=== PATIENT | female | born 1935 | race African-American/Black ===

== ENCOUNTER 2019-10-11 16:54 | Inpatient (IN) ==
--- NOTE | 2019-10-11 17:27 | PROVIDER DOCUMENTATION ---
HPI-General Adult - General Chief Complaint: Fall Stated Complaint: FALL-HEADACHE Time Seen by Provider: 10/11/19 17:06 Source: patient, other (friend) Allergies/Adverse Reactions: Patient Allergies Allergy/AdvReac Type Severity Reaction Status Date / Time hydrocodone AdvReac RASH Verified 09/06/19 11:44 Latex, Natural Rubber AdvReac HIVES Verified 09/06/19 11:44 Penicillins AdvReac HIVES Verified 09/06/19 11:44 Home Medications: Home Medication List Medication Instructions Recorded Confirmed Last Taken Type Duloxetine HCl 30 mg PO DAILY 08/04/18 09/06/19 Unknown History Furosemide 20 mg PO DAILY 08/04/18 09/06/19 Unknown History Gabapentin 2 tab PO BID 09/06/19 09/06/19 Unknown History Losartan Potassium 1 tab PO DAILY 09/06/19 09/06/19 Unknown History Meloxicam 15 mg PO DAILY 09/06/19 09/06/19 Unknown History Omeprazole 1 tab PO DAILY 09/06/19 09/06/19 Unknown History - History of Present Illness -Gen Adult Nature of Presenting Problems: 83 yof presents with c/o fall and laying on the bathroom floor x 1 hour. she reports she tripped, remembers fall. She reports she hit her head and left shoulder. She reports she recently has had constipation, hiccups, poor appetite, abdominal cramping, was recently treated for UTI and placed on magnesium for leg cramps. She is alert and oriented on exam. C/o headache, nausea, vomiting, L shoulder pain. Location of Pain/Injury: reports: head, upper extremity Pain Radiation: reports: no radiation Quality of Pain: reports: aching Severity: reports: moderate Onset/Duration: reports: 4-6 hours ago Timing: reports: still present Context/Activities at Onset: reports: other (fall) Modifying Factors: improves with: nothing Associated Symptoms: reports: constipation, nausea, vomiting Similar Symptoms Previously?: Yes Recently seen or treated by another doctor?: No Review of Systems - Adult - REVIEW OF SYSTEMS - ADULT Constitutional: reports: no symptoms reported. denies: see HPI, chills, fever, fatique, night sweats, weight gain, weight loss, other Eyes: reports: no symptoms reported. denies: see HPI, discharge, dry eyes, decreased vision, blurred vision, double vision, eye pain, redness, other Ears, Nose, Mouth & Throat: reports: no symptoms reported. denies: see HPI, ear discharge, ear pain, hearing loss, tinnitus, epistaxis, sinus problem, nose pain, loose teeth, mouth/dental pain, mouth swelling, hoarseness, throat pain, throat swelling, other Cardiovascular: reports: no symptoms reported. denies: see HPI, chest pain, edema, heart murmur, irregular heart rate, orthopnea, palpitations, poor circulation, PND, syncope, other Respiratory: reports: no symptoms reported. denies: see HPI, chronic cough, cough, dyspnea on exertion, excessive sputum production, hemoptysis, pleurisy, shortness of breath, wheezing, other Gastrointestinal: reports: abdominal pain (cramping), constipation, nausea, vomiting. denies: no symptoms reported, see HPI, hematemesis, diarrhea, difficulty swallowing, frequent heartburn, poor appetite, rectal bleeding, other Genitourinary: reports: see HPI, dysuria, frequency. denies: no symptoms reported, discharge, flank pain, frequent UTI's, hematuria, hesitency, incontinence, urinary retention, urgency, other Musculoskeletal: reports: see HPI, bone pain, joint pain, neck pain. denies: no symptoms reported, back pain, frequent leg cramps, joint swelling, muscle aches, muscle weakness, other Integumentary: reports: no symptoms reported. denies: see HPI, hives, hair loss, itching, mole changes, nail changes, rash, skin sores/ulcer, skin thickening, other Neurological: reports: headache/migraines. denies: no symptoms reported, see HPI, ataxia, dizziness/vertigo, loss of balance, numbness, paresthesia, seizure, slurred speech, syncope, tremors, other Psychiatric: reports: no symptoms reported. denies: see HPI, anxiety, anti- depressant use, alcohol/drug dependence, depression, emotional problems, insomnia, panic attacks, suicidal thoughts, other Endocrine: reports: no symptoms reported. denies: see HPI, change in skin pigment, excessive sweating, goiter, cold intolerance, heat intolerance, increased hunger, increased thirst, polyuria, other Hematologic/Lymphatic: reports: no symptoms reported. denies: see HPI, blood clots, easy bruising, low blood count, lymphedema, prolonged bleeding, swollen lymph nodes, transfusions, other Allergic/Immunologic: reports: no symptoms reported. denies: see HPI, allergic reactions, allergic rhinitis, asthma, eczema, food allergy, frequent infections, hay fever, hives, positive PPD, urticaria, other Past History - Adult - PAST MEDICAL HISTORY-ADULT Review of Records: reports: Nursing Assessment Review, Social history reviewed & non-contributory. Major Childhood Illnesses: reports: denies history Cardiovascular: reports: HTN Respiratory: reports: denies history Gastrointestinal: reports: denies history Obstetrical/Gynecological: reports: denies history Genitourinary: reports: denies history Musculoskeletal: reports: chronic pain (back) Neurological: reports: denies history Psychiatric: reports: denies history Endocrine/Immune: reports: denies history Other Conditions: reports: denies history - PRIOR SURGERIES/PROCEDURES Surgical/Procedure History: reports: reviewed, not pertinent, hysterectomy, back/neck (back) - IMMUNIZATION STATUS Childhood Immunizations: See Nurse Assessment Flu Vaccine: See Nurse Assessment - FAMILY HISTORY Family History: reviewed, not pertinent Physical Exam-General - PHYSICAL EXAM-ADULT Initial Vital Signs Reviewed: Yes - CONSTITUTIONAL General Appearance: alert, no apparent distress - EYES Eyes: PERRL/EOMI, pink conjunctivae - HEAD, EARS, NOSE, MOUTH & THROAT HENMT: normocephalic/atraumatic, moist mucous membranes, normal ENT inspection - NECK Neck: non-tender, full range of motion, supple - RESPIRATORY Respiratory: chest non-tender, lungs clear, normal breath sounds, no pleuratic chest pain, no respiratory distress, no accessory muscle use - CARDIOVASCULAR Cardiovascular: normal peripheral pulses, regular rate, rhythm, no edema, no gallop, no JVD, no murmur - GASTROINTESTINAL (ABDOMEN) Abdominal Exam: normal bowel sounds, soft, tenderness (generalized) - LYMPHATIC Lymphatic: no adenopathy - MUSCULOSKELETAL Back Exam: normal inspection, no CVA tenderness, no vertebral tenderness. negative: vertebral tenderness Extremity: normal range of motion, non-tender, normal inspection, no pedal edema Peripheral Pulses: radial (R): 2+, radial (L): 2+ - SKIN Integumentary: normal color, normal turgor, warm/dry - NEUROLOGIC Neurologic: grossly normal. negative: aphasia, facial droop, focal weakness - PSYCHIATRIC Psych/Mental Status: normal mood/affect, oriented x 3 Progress - PLAN OF CARE/RESULTS Progress/Plan/Lab Results: Vital Signs - 8 hr 10/11/19 17:06 Temperature 97.3 F L Pulse Rate 79 Respiratory Rate 18 Blood Pressure 145/89 O2 Sat by Pulse Oximetry 96 Orders Category Date Time Status CT HEAD/C-SPINE W/O CONTRAST [CT] Stat Exams 10/11/19 17:10 Ordered CBC WITH ELECTRONIC DIFF [HEME] Stat Lab 10/11/19 17:10 Uncollected CK PROFILE [SP CHEM] Stat Lab 10/11/19 17:21 Uncollected COMPREHENSIVE METABOLIC PANEL [CHEM] Stat Lab 10/11/19 17:10 Uncollected UA NIMS W/REFLEX CULT [URINALYSIS] Stat Lab 10/11/19 17:10 Uncollected Result Diagrams: 10/11/19 17:18 10/11/19 17:18 - CT/MRI 1 CT Study: Cervical Spine, Head Impression: See EMR Report (EXAM: CT HEAD/C-SPINE W/O CONTRAST INDICATION: Fall TECHNIQUE: This exam was performed using automated exposure control, adjustment of mA or kV according to patient size, and/or use of iterative reconstruction technique. 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 There is no definite acute infarct given the limited sensitivity of CT versus MRI. There is no discrete intracranial mass, mass effect, or intracranial hemorrhage. The surrounding soft tissues are essentially unremarkable. The calvaria is intact. C-spine: There is advanced multilevel facet arthropathy. There is fusion of the facets at C4-5. This causing minimal anterolisthesis of C4 on C5. There is milder degenerative disc disease with small marginal osteophytes at C5-6 and C6-7. There is disc space height loss at C6-7. The central canal appears to be largely patent. There is foraminal stenosis related to the facet arthropathy at multiple levels. Otherwise, there is no discrete fracture, subluxation, or intrinsic osseous lesion. The surrounding soft tissues are essentially unremarkable. IMPRESSION: 1.No evidence of acute intracranial pathology. 2.Multilevel degenerative arthropathy as described. No evidence of fracture or other definite acute C-spine injury. Electronically signed by Jesus Simpson 10/11/2019 6:26 PM 10/11/19 [id number] Interpreting Physician: Jesus Simpson MD Dictated Date/Time: 10/11/19 182) - CONSULTS/PCP/HOSPITALIST Notification #1 *Consult/PCP/Hospitalist*: Dr. Do Time Discussed: 18:57 Consult Disposition: Admit (Place patient on NS at 75, no abx after this initial dose.) Departure - Departure Date of Disposition Decision: 10/11/19 Time of Disposition Decision: 18:56 DIAGNOSIS: EMILIE (acute kidney injury), Dehydration, Fall, Degenerative disc disease, cervical, UTI (urinary tract infection) Disposition: ADMITTED INPATIENT 09 Certified Medical Emergency: Emergent Condition: Stable Referrals and Follow-Ups: Sky Flores MD [Primary Care Provider] - - Critical Care Note This patient required my direct & personal management of CC.: No Attestation - Physician/ LELAND Attestation Patient care was provided by Advanced Practice Provider:: Yes Advanced Practice Provider:: Barbara Zurita Advanced Practice Provider documentation review:: The Mid-level provider documentation, treatment plan and medical decision making was reviewed by the physician who agrees with all treatment and medical decision making by the MLP. The physician spent face to face time with patient:: No Advanced Practice Provider documentation review:: Supervising physician onsite and consulted in the evaluation and care of this patient. The physician did not have a face to face encounter with the patient.
[2019-10-11 17:47] LABS: BASO# 0.02 X1000 (0.0-0.2); BASO% 0.1 % (0.0-0.8); HEMATOCRIT 44.1 % (37.0-47.0); HEMOGLOBIN 14.1 g/dL (12.0-16.0); IMM GRAN# 0.04 X1000 (0.0-0.04); IMM GRAN% 0.3 % (0.0-0.5); LYMPH# 1.97 X1000 (1.2-3.4); LYMPH% 13.1 % (20.5-51.1); MCH 23.9 PG (27-31); MCV 74.9 FL (81-99); MONO# 1.08 X1000 (0.11-0.59); MONO% 7.2 % (1.7-9.3); MPV 12.3 FL (7.4-10.4); NEUT# 11.93 X1000 (1.4-6.5); NEUT% 79.3 % (42.2-75.2); PLT 252 X1000 (130-400); RBC 5.89 XMIL (4.2-5.4); RDW 16.4 % (11.5-14.5); WBC 15.04 X1000 (4.8-10.8)
[2019-10-11 18:06] LABS: ALBUMIN 4.6 g/dL (3.5-5.0); CALCIUM 10.6 mg/dL (8.8-10.2); CREATININE 1.5 mg/dL (0.5-0.9); MAGNESIUM 2.9 mg/dL (1.5-2.7); POTASSIUM 4.7 mmol/L (3.5-5.1); TOTAL BILIRUBIN 0.6 mg/dL (0.20-1.00); TOTAL PROTEIN 7.9 g/dL (6.3-8.3)
[2019-10-11] MEDS ORDERED: NS 500 ML IV ONE (18:09)
[2019-10-11 18:13] LABS: URINE SOURCE CLEAN CATCH
--- NOTE | 2019-10-11 18:28 | Diag Imaging Result Doc PS360 ---
EXAM: CT HEAD/C-SPINE W/O CONTRAST INDICATION: Fall TECHNIQUE: This exam was performed using automated exposure control, adjustment of mA or kV according to patient size, and/or use of iterative reconstruction technique. 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 There is no definite acute infarct given the limited sensitivity of CT versus MRI. There is no discrete intracranial mass, mass effect, or intracranial hemorrhage. The surrounding soft tissues are essentially unremarkable. The calvaria is intact. C-spine: There is advanced multilevel facet arthropathy. There is fusion of the facets at C4-5. This causing minimal anterolisthesis of C4 on C5. There is milder degenerative disc disease with small marginal osteophytes at C5-6 and C6-7. There is disc space height loss at C6-7. The central canal appears to be largely patent. There is foraminal stenosis related to the facet arthropathy at multiple levels. Otherwise, there is no discrete fracture, subluxation, or intrinsic osseous lesion. The surrounding soft tissues are essentially unremarkable. IMPRESSION: 1.No evidence of acute intracranial pathology. 2.Multilevel degenerative arthropathy as described. No evidence of fracture or other definite acute C-spine injury. Electronically signed by Jesus Simpson 10/11/2019 6:26 PM
[2019-10-11 18:39] LABS: BILIRUBIN URINE NEGATIVE (NEGATIVE); BLOOD URINE TRACE (NEGATIVE); COLOR YELLOW; GLUCOSE URINE NEGATIVE (NEGATIVE); KETONE URINE TRACE mg/dL (NEGATIVE); LEUKOCYTES URINE LARGE (NEGATIVE); NITRITE URINE NEGATIVE (NEGATIVE); PROTEIN URINE 70 mg/dL (NEGATIVE); SP GRAVITY URINE 1.032; TURBIDITY URINE HAZY (CLEAR); UROBILINOGEN URINE NORMAL (NORMAL)
[2019-10-11 18:40] LABS: UR EPITHELIAL CELLS >10 /HPF (<10); URINE BACTERIA 1+ /HPF; URINE RBC <10 /HPF (<10); URINE WBC TNTC /HPF (<10)
[2019-10-11] MEDS ORDERED: LEVAQUIN 500 MG/D5W 500 MG/100 ML IVPB IV ONE (18:43)
[2019-10-11] MEDS ORDERED: NS 1,000 ML IV ONE (18:58)
--- NOTE | 2019-10-11 18:58 | Diag Imaging Result Doc PS360 ---
EXAM: SHOULDER-LEFT INDICATION: shoulder pain, fall TECHNIQUE: 2 views COMPARISON: None. FINDINGS: There has been a prior left shoulder arthroplasty. Arthroplasty hardware is in the expected position. There is no discrete fracture, dislocation, or significant intrinsic osseous lesion, otherwise. The surrounding soft tissues are essentially unremarkable. IMPRESSION: No evidence of acute osseous abnormality. Electronically signed by Jesus Simpson 10/11/2019 6:56 PM
[2019-10-12 00:36] LABS: INR 1.14; PROTIME 15.2 Seconds (11.0-16.0)
[2019-10-12 00:37] LABS: PTT 30.1 Seconds (22.3-41.8)
[2019-10-12] MEDS: TYLENOL PO PRN (03:28)
--- NOTE | 2019-10-12 07:56 | Diag Imaging Result Doc PS360 ---
EXAM: CHEST-1 VIEW - 10/11/2019 HISTORY: SEPSIS PROTOCOL TECHNIQUE: One view chest COMPARISON: None. FINDINGS: Heart size is normal. Inspiration is mildly shallow, and there is mild elevation of the right hemidiaphragm. There is subsegmental atelectasis at the lung bases. There is no consolidation, pleural effusion, or pneumothorax identified. IMPRESSION: Mildly shallow inspiration, with mild elevation of right hemidiaphragm and basilar subsegmental atelectasis. No discrete pneumonia. Electronically signed by Vinay Cesar 10/12/2019 7:54 AM
[2019-10-12] MEDS ORDERED: NS 1,000 ML IV SCH (08:30)
[2019-10-12] MEDS: LACTULOSE PO SCH ×2 (09:03→21:29)
--- NOTE | 2019-10-12 14:52 | HISTORY AND PHYSICAL ---
PRIMARY CARE PROVIDER: Dr. Sky Flores. CHIEF COMPLAINT: Fall. HISTORY OF PRESENT ILLNESS: This is an 83-year-old female who fell in the bathroom prior to coming to the emergency room. She states that she tripped, fell. She remembers tripping, falling, and hitting the floor. She complains of hitting her head and her left shoulder. She denied any loss of consciousness, any incontinence of bowel or bladder. She did state that she has had trouble with constipation for quite a few weeks now, has had some nausea, abdominal cramping, and hiccups secondary to this. She also reports recently being treated for a UTI, and given magnesium for leg cramps. PAST MEDICAL HISTORY: Chronic back pain, hypertension, leg cramps. PAST SURGICAL HISTORY: Multiple back surgeries, hysterectomy, and right foot surgery. SOCIAL HISTORY: She denies any alcohol, tobacco, or illicit drug use. She lives alone with children close that are active in her care. ALLERGIES: Hydrocodone, latex, and penicillin all cause hives. HOME MEDICATIONS: A list will be obtained by the nursing staff, and once verified, will review and restart as appropriate. REVIEW OF SYSTEMS: Discussed with the patient, with pertinent positives stated in the HPI. She denied any syncope or dizziness, any chest pain or palpitations, any shortness of breath, cough, fever, chills, night sweats, recent weight loss or weight gain, any diarrhea, black or bloody vomitus or stools, any hematuria, dysuria. PHYSICAL EXAMINATION: GENERAL: This is an 83-year-old female who is sitting up on the side of the bed on the floor in no distress. VITAL SIGNS: Blood pressure is 132/50, with a heart rate of 84, respirations are 16, temperature is 97.8 degrees oral, with room air saturations 97% to 100%. HENT: Head is normocephalic, atraumatic. Mucous membranes are moist. EYES: Pupils are equal, round, react to light. EOMs are intact. NECK: Supple with trachea midline. CARDIOVASCULAR: Regular rate and rhythm. S1 and S2 are appreciated. No murmur. EXTREMITIES: She has no lower extremity edema. Calves are nontender bilateral, with peripheral pulses palpable x4 extremities. PULMONARY: Breath sounds are clear with no increased work of breathing noted. Chest rises and falls symmetric with respiration. Chest wall is nontender to palpation. GASTROINTESTINAL: Abdomen is soft, nontender, nondistended, with bowel sounds in all 4 quadrants. NEUROLOGIC: She is alert and oriented x3. SKIN: Warm and dry. IMAGING AND LABORATORY DATA: WBC is 15, with hemoglobin 14.1, hematocrit 44.1, and platelets of 252,000. INR is 1.14. Sodium 139, potassium 4.7, BUN 37, creatinine 1.5, with a glucose of 132. Magnesium is 3. Urinalysis reveals a large amount of leukocytes, with [id number]-[id number]-count microscopic white blood cells, greater than 10 epithelial cells. Urine culture and blood cultures are pending. CT of the head and cervical spine reveals no evidence of acute intracranial pathology, multilevel degenerative arthropathy, no evidence of fracture or other definite acute C- spine injury. Left shoulder x-ray reveals no evidence of acute osseous abnormality. Chest x-ray: Mild shallow inspiration with mild elevation of right hemidiaphragm and basilar subsegmental atelectasis. No discrete pneumonia. ASSESSMENT: 1. Fall. 2. Acute kidney injury. 3. Dehydration. 4. Urinary tract infection. 5. Leukocytosis secondary to urinary tract infection. 6. Hypermagnesemia. PLAN: The patient has been admitted to the medical/surgical floor, and placed on telemetry, which will continue. Will continue with antibiotic coverage of Levaquin, and further antibiotics will be culture driven. Will continue with gentle IV hydration, lactulose for bowel regimen. Will continue Neurontin, although will decrease the dose to 300 b.i.d. Check a CBC, BMP, and magnesium in the morning. Will hold her magnesium supplements. Consult Physical Therapy. Plan was discussed with Dr. Pride. Further treatments pending hospital course. Dictated by CRISTÓBAL Holt for Paresh Pride MD cc: CRISTÓBAL Holt MD [facility]
[2019-10-12] MEDS: LEVAQUIN 500 MG/D5W 500 MG/100 ML IVPB IV SCH (19:55)
--- NOTE | 2019-10-12 20:17 | HISTORY AND PHYSICAL ---
ADDENDUM: Patient seen and examined by myself. Full note dictated and discussed with nurse practitioner. Patient presented to the hospital after having been found at home. She had apparently fallen on the floor for about an hour. She tripped and got stuck, could not get up. So far, her workup has been negative. We are going to admit her to the hospital, follow her labs. She does appear to have a urinary tract infection. We will place her on antibiotics, IV fluids, recheck her labs in the morning and follow urine cultures. Further orders as needed. Please see full note. cc: Paresh Pride MD
[2019-10-12] MEDS ORDERED: NEURONTIN PO SCH ×2 (21:00)
[2019-10-12] MEDS: BENADRYL PO SCH (21:29)
[2019-10-12] MEDS: TYLENOL PO SCH (21:29)
[2019-10-12] MEDS ORDERED: ZOFRAN PO SCH (21:45)
[2019-10-12] MEDS: ZOFRAN ODT PO PRN (22:32)
[2019-10-13] MEDS: PRILOSEC PO SCH (06:11)
[2019-10-13 06:52] LABS: BASO# 0.02 X1000 (0.0-0.2); BASO% 0.2 % (0.0-0.8); EOS# 0.08 X1000 (0.0-0.7); HEMATOCRIT 37.4 % (37.0-47.0); HEMOGLOBIN 12.2 g/dL (12.0-16.0); IMM GRAN# 0.01 X1000 (0.0-0.04); IMM GRAN% 0.1 % (0.0-0.5); LYMPH# 1.98 X1000 (1.2-3.4); LYMPH% 24.4 % (20.5-51.1); MCH 24.7 PG (27-31); MCHC 32.6 g/dL (33-37); MCV 75.7 FL (81-99); MONO# 0.95 X1000 (0.11-0.59); MONO% 11.7 % (1.7-9.3); MPV 12.8 FL (7.4-10.4); NEUT# 5.06 X1000 (1.4-6.5); NEUT% 62.6 % (42.2-75.2); PLT 209 X1000 (130-400); RBC 4.94 XMIL (4.2-5.4); RDW 16.2 % (11.5-14.5)
[2019-10-13] MEDS ORDERED: NON-FORMULARY MED (Omeprazole 40 MG) PO SCH (07:00)
[2019-10-13 07:31] LABS: CALCIUM 9.3 mg/dL (8.8-10.2); CREATININE 0.9 mg/dL (0.5-0.9); MAGNESIUM 2.3 mg/dL (1.5-2.7); POTASSIUM 4.1 mmol/L (3.5-5.1)
[2019-10-13] MEDS: LACTULOSE PO SCH ×2 (08:56→21:01)
[2019-10-13] MEDS: FLONASE NAS SCH (08:57)
[2019-10-13] MEDS: LEVAQUIN 500 MG/D5W 500 MG/100 ML IVPB IV SCH (19:39)
[2019-10-13] MEDS: BENADRYL PO SCH (21:01)
[2019-10-13] MEDS: TYLENOL PO SCH (21:02)
[2019-10-14] MEDS: PRILOSEC PO SCH (06:12)
[2019-10-14] MEDS: LACTULOSE PO SCH ×2 (09:28→21:28)
[2019-10-14] MEDS: FLONASE NAS SCH (09:28)
[2019-10-14] MEDS ORDERED: NICODERM PATCH TD PRN (19:23)
[2019-10-14] MEDS: LEVAQUIN 500 MG/D5W 500 MG/100 ML IVPB IV SCH (19:37)
[2019-10-14] MEDS: TYLENOL PO SCH (21:28)
[2019-10-14] MEDS: BENADRYL PO SCH (21:28)
[2019-10-14] MEDS: ZOFRAN ODT PO PRN (23:21)
--- NOTE | 2019-10-15 00:33 | PROGRESS NOTE ---
DATE: 10/14/2019 SUBJECTIVE: Patient notes that she is hurting all over. She is having headaches, neck pain, back pain, shoulder pain. Again notes that she has had 13 surgeries and 3 recent spinal injections. Again notes that she fell and got wedged by her cabinet. Otherwise, no new discussion. PHYSICAL EXAMINATION: Vital signs: Temperature 98.6 degrees, pulse 92, respiratory rate 18, BP 111/62. General: Patient is an elderly female who is currently in no respiratory distress. HEENT: Normocephalic. Neck: Supple. Cardiovascular: Regular rate. Chest: Clear. Abdomen: Soft. Extremities: Moves all extremities. ASSESSMENT: 1. Recent fall. 2. Hypomagnesemia. 3. Leukocytosis, resolved. 4. Acute kidney injury, resolved. 5. Urinary tract infection. 6. Chronic pain. 7. Others. PLAN: We are going to continue patient in the hospital. Continue physical therapy. Advance her diet. Hopefully her symptoms will improve and her nausea will resolve. cc: Paresh Pride MD
[2019-10-15] MEDS: PRILOSEC PO SCH (06:04)
[2019-10-15] MEDS: FLONASE NAS SCH (10:24)
[2019-10-15] MEDS: LACTULOSE PO SCH ×2 (10:25→20:25)
--- NOTE | 2019-10-15 14:09 | Diag Imaging Result Doc PS360 ---
EXAM: KUB ABDOMEN 10/15/2019 HISTORY: pain TECHNIQUE: KUB COMMENT: There is stool throughout the colon. There is no evidence of bowel obstruction organomegaly or mass. There are postsurgical changes in the lumbar spine at L4-5. IMPRESSION: Constipation. Electronically signed by Itz Harrison 10/15/2019 2:06 PM
[2019-10-15] MEDS: LEVAQUIN PO SCH (16:00)
[2019-10-15] MEDS: TYLENOL PO SCH (20:24)
[2019-10-15] MEDS: BENADRYL PO SCH (20:25)
--- NOTE | 2019-10-15 20:49 | PROGRESS NOTE ---
DATE: 10/15/2019 SUBJECTIVE: Patient notes she is still very fatigued and tired, still having difficulty getting to the restroom on her own. PHYSICAL EXAMINATION: Vital Signs: Temperature 97.8, pulse 77, respiratory rate 18, BP 124/65. General: Patient is pleasant. She is in no distress. HEENT: Normocephalic. Neck: Supple. Cardiovascular: Regular rate. Chest: Clear. Abdomen: Soft. Extremities: Moves all extremities. ASSESSMENT: 1. Acute renal failure, resolved. 2. Acute leukocytosis, resolved. 3. Frequent falls. 4. Hypomagnesemia. 5. Constipation. We will add lactulose. PLAN: We are going to continue patient in hospital. Continue physical therapy. Expect that she will need rehab on discharge. We will ask for [employer]. cc: Paresh Pride MD
[2019-10-16] MEDS: PRILOSEC PO SCH (06:06)
[2019-10-16] MEDS: LACTULOSE PO SCH ×2 (09:38→20:15)
[2019-10-16] MEDS: LEVAQUIN PO SCH (09:38)
[2019-10-16] MEDS: TYLENOL PO PRN (09:38)
[2019-10-16] MEDS: FLONASE NAS SCH (09:38)
--- NOTE | 2019-10-16 19:50 | PROGRESS NOTE ---
DATE: 10/16/2019 SUBJECTIVE: The patient notes that she is feeling okay. She is still having some constipation. Still having chronic back pain. Denies any fevers, chills. Still having trouble ambulating. PHYSICAL EXAMINATION: Vital Signs: Reviewed. Temp 98 degrees, pulse 85, respiratory rate 18, BP 109/45. General: Patient is pleasant. She is in no current respiratory distress. HEENT: Normocephalic. Neck: Supple. Cardiovascular: Regular rate. Chest: Clear. Nonlabored. Abdomen: Soft diffusely. Minimally tender. Positive bowel sounds. Extremities: Moves all extremities. ASSESSMENT: 1. Recent fall. 2. Acute kidney injury, resolved. 3. Hypertension. 4. Chronic low back pain. 5. Hypomagnesemia. 6. Constipation. 7. Volume depletion, resolved. PLAN: We are going to continue the patient in the hospital. Continue lactulose for constipation disease. Physical therapy for generalized weakness. Hopefully she can transition to rehab soon. cc: Paresh Pride MD
[2019-10-16] MEDS: TYLENOL PO SCH (20:14)
[2019-10-16] MEDS: BENADRYL PO SCH (20:14)
[2019-10-17] MEDS: PRILOSEC PO SCH (06:05)
--- NOTE | 2019-10-17 09:53 | DISCHARGE SUMMARY ---
ADMISSION DATE: 10/11/2019 DISCHARGE DATE: 10/17/2019 ADMISSION DIAGNOSES: 1. Fall. 2. Acute kidney injury. 3. Dehydration. 4. Urinary tract infection. 5. Leukocytosis secondary to urinary tract infection. 6. Hypermagnesemia. DISCHARGE DIAGNOSES: 1. Recent fall. 2. Acute kidney injury, resolved. 3. Hypertension. 4. Chronic lower back pain. 5. Hypomagnesemia. 6. Constipation. 7. Volume depletion, resolved. CONSULTATIONS: None. SURGERIES AND PROCEDURES: None. HISTORY AND HOSPITAL COURSE: On 10/11/2019, Ms. Moriah Etienne, an 83-year-old female presented to [facility]. She apparently had a fall that was a mechanical fall where she tripped. She remembers tripping, falling and hitting the floor, complained of her head, hitting her head and the left shoulder. Denied loss of consciousness or incontinence. She was complaining of some nausea, abdominal cramping, hiccups, and constipation. She had reported being recently treated for a urinary tract infection and was given magnesium for some leg cramps. She was transferred to the medical floor, put on telemetry, antibiotic coverage for the UTI with Levaquin. However, the urine only had mixed zak. No specific bacteria. She was started on some IV fluids for the dehydration and acute kidney injury. For the constipation, she was given lactulose. Physical therapy was ordered. Imaging of the shoulder and the head and cervical spine were all benign. No acute findings. Chest x-ray did not show any pneumonia, and today she is stable for discharge to [facility]. DISCHARGE VITAL SIGNS: Temperature 97.7 degrees, heart rate 93, respiratory rate 20, blood pressure 122/72, and O2 saturation 100% on room air. DISCHARGE LABORATORY DATA: White blood cells 8000, hemoglobin 12, hematocrit 37, platelet count 209,000. Sodium 138, potassium 4.1, BUN 20, creatinine 0.9, glucose 90, calcium 9.3, magnesium was 2.3. Cultures all negative. IMAGING: On 10/11/2019, head and cervical spine, no acute findings. There is multilevel degenerative arthropathy. On 10/11/2019, left shoulder x-ray, no evidence of acute fractures. On 10/11/2019, chest x-ray, no pneumonia. There was right hemidiaphragm only mild, it did have some atelectasis with it. On 10/15/2019, abdominal x-ray showed constipation. Telemetry strips showed sinus rhythm. DISCHARGE MEDICATIONS: 1. Levaquin 500 mg p.o. daily for 3 more days. 2. Tramadol/acetaminophen 1 tablet p.o. every 6 hours p.r.n. 3. Potassium chloride 8 mEq p.o. daily. 4. Omeprazole 40 mg p.o. daily. 5. Mobic 15 mg p.o. daily. 6. Magnesium oxide 500 mg p.o. daily. 7. Losartan/potassium 50 mg p.o. daily. 8. Neurontin 600 mg p.o. twice daily. 9. Lasix 20 mg p.o. daily. 10. Fluticasone or Flonase intranasally. DISCHARGE DIET: Heart healthy. DISCHARGE ACTIVITY: As tolerated with physical therapy, on fall precautions. PHYSICIAN FOLLOWUP: Dr. Sky Flores DISCHARGE INSTRUCTIONS: Will be per facility. Take all antibiotics as prescribed and keep followup appointments. DISCHARGE DISPOSITION: [facility]. Dictated by CRISTÓBAL Allan for Paresh Pride MD cc: CRISTÓBAL Allan MD
[2019-10-17] MEDS: FLONASE NAS SCH (10:09)
[2019-10-17] MEDS: LEVAQUIN PO SCH (10:09)
[2019-10-17 12:43] VITALS: BP 121/56
[2019-10-17] MEDS: LACTULOSE PO SCH (12:45)
--- NOTE | 2019-10-18 20:56 | DISCHARGE SUMMARY ---
ADMISSION DATE: 10/11/2019 DISCHARGE DATE: 10/17/2019 HOSPITAL COURSE: Patient seen and examined by myself. Full note dictated and discussed with nurse practitioner. Patient presented to the hospital with nausea, headaches. She has had multiple complaints of multiple different pains and previous surgeries. 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 We are going to transition her to rehab. She did admit with leukocytosis and acute renal failure, both of which have resolved. cc: Paresh Pride MD
== END 2019-10-17 12:45 | DRG 684 ==
LOC: P.ED 16:54 → P.MEDSURG 20:30
PROVIDERS: ATTEND Family Medicine